=== PATIENT | male | born 1960 | race African-American/Black ===

== ENCOUNTER → 2016-11-25 | Outpatient (CLI) | payer BC ==
[2016-11-25 09:59] LABS: ALANINE AMINOTRANSFERASE 43 IU/L (13-61); ALBUMIN 3.6 g/dL (3.4-5.0); ANION GAP 10; CALCIUM 9.4 mg/dL (8.5-10.1); CARBON DIOXIDE 28 mEq/L (21-32); CHLORIDE 107 mEq/L (98-107); HDL CHOLESTEROL 47 mg/dL (40-59); INDEX HEMOLYSI 1 (1-3); INDEX ICTERIC 1 (1-4); INDEX LIPEMIC 1 (1-3); LDL CHOLESTEROL 99 mg/dL (5-100); TRIGLYCERIDE 161 mg/dL (0-150); UREA NITROGEN BLOOD 13 mg/dL (7-21); URIC ACID 8.3 mg/dL (2.6-7.2); eGFR > 60 mL/min (>60)
== END | disposition home or self-care (01) ==
LOC: LAB 09:18
PROVIDERS: ATTEND Family Medicine
DX: M10.9 Gout, unspecified (principal)
CPT/HCPCS: 36415; 80053; 80061; 84550